=== PATIENT | male | born 1960 | race African-American/Black ===

== ENCOUNTER 2018-03-18 08:29 | Observation (INO) ==
[2018-03-18] MEDS ORDERED: HYDROmorphone 2 MG/1 ML VIAL IV STA (09:59)
[2018-03-18] MEDS ORDERED: SODIUM CHLORIDE 0.9% 500 ML IV STA (09:59)
[2018-03-18] MEDS ORDERED: ONDANSETRON 4 MG/2 ML VIAL IV STA (09:59)
[2018-03-18 10:32] LABS: Basophils % 0.4 % (0.0-0.8); Eosinophils % 0.5 % (0.00-10.9); Hematocrit 40.5 VOL% (42.0-52.0); Immature Granulocytes % 0.9 %; Immature Granulocytes Absolute 0.07 #; Lymphocytes # 2.4 10*3/uL (1.4-4.0); Lymphocytes % 30.3 % (21.2-54.2); Mean Corpuscular HGB Conc 32.1 GM/DL (32-36); Mean Corpuscular Hemoglobin 26 PG (27-34); Mean Corpuscular Volume 81.2 FL (87-102); Mean Platelet Volume 9.6 FL (9.6-12.0); Monocytes # 0.5 10*3/uL (0.11-0.8); Monocytes % 6.3 % (1.7-12.7); Neutrophils # 4.8 10*3/uL (1.4-7.4); Neutrophils % 61.6 % (38.7-73.9); Platelet Count 227 T/CUMM (130-400); Red Blood Count 4.99 MC/CUMM (3.8-5.5); Red Cell Distribution Width 15.1 % (9.3-17.3); White Blood Count 7.8 T/CUMM (4-12)
[2018-03-18 10:53] LABS: Lactic Acid 1.3 MMOL/L (0.4-2.0)
[2018-03-18 10:54] LABS: Alanine Aminotransferase 23 U/L (16-61); Albumin 3.7 G/DL (3.4-5.0); Alkaline Phosphatase 66 U/L (45-117); Amylase 84 U/L (25-115); Aspartate Amino Transferase 14 U/L (0-37); Blood Urea Nitrogen 9 MG/DL (7-18); Glucose 112 MG/DL (74-106); Osmolality,Calculated 278.4 MOS/KG (273-304); Potassium 4.3 MMOL/L (3.5-5.1); Sodium 140 MMOL/L (136-145); Total Protein 6.9 G/DL (6.4-8.3)
[2018-03-18 10:55] LABS: Troponin I Only < 0.015 NG/ML (0.00-0.045)
[2018-03-18] MEDS ORDERED: ONDANSETRON 4 MG/2 ML VIAL IV PRN (13:27)
[2018-03-18] MEDS ORDERED: ACETAMINOPHEN 325 MG TABLET PO PRN (13:27)
[2018-03-18] MEDS: LACTATED RINGERS 1,000 ML IV SCH ×2 (21:55→21:56)
[2018-03-19 05:24] LABS: Amorphous Crystals,Urine Moderate /HPF (Few); Apearance,Urine Slightly Hazy (Clear); Bacteria,Urine Occasional /HPF (Few); Bilirubin,Urine Negative (Negative); Blood, Urine Negative (Negative); Glucose,Urine (UA) Negative (Negative); Ketones,Urine Negative (Negative); Mucus,Urine Occasional /LPF (Occasional); Nitrite,Urine Negative (Negative); Protein,Urine Negative; RBC,Urine 2 /HPF (0-4); Squamous Epithelial Cell,Urine Occasional /HPF (0-10); Urine Color Yellow (Yellow); Urine Specific Gravity 1.014 (1.001-1.035); Urine Urobilinogen < 2.0 EU/DL (0.2-1.0); WBC,Urine 4 /HPF (0-6)
[2018-03-19] MEDS: LACTATED RINGERS 1,000 ML IV SCH ×2 (06:31→19:53)
[2018-03-19] MEDS ORDERED: cefOXitin 2,000 MG in SYRINGE 1 EACH IV ONE (09:00)
[2018-03-19] MEDS ORDERED: LIDOCAINE 1%/EPI INJ 20 ML VIAL ONE (11:45)
[2018-03-19] MEDS ORDERED: BUPIVACAINE MPF 0.25% 30 ML VIAL ONE (11:46)
[2018-03-19] MEDS ORDERED: HYDROmorphone 2 MG/1 ML VIAL IV PRN (13:26)
[2018-03-19] MEDS ORDERED: ONDANSETRON 4 MG/2 ML VIAL IV PRN (13:26)
[2018-03-19] MEDS ORDERED: MEPERIDINE 25 MG/1 ML VIAL IV PRN (13:26)
[2018-03-19] MEDS ORDERED: SEVOFLURANE 1 UNIT/15 MINUTE INH ONE (14:22)
[2018-03-19] MEDS ORDERED: ROCURONIUM 100 MG/10 ML VIAL IV ONE (14:22)
[2018-03-19] MEDS ORDERED: LACTATED RINGERS 1,000 ML IV ONE (14:22)
[2018-03-19] MEDS ORDERED: ONDANSETRON 4 MG/2 ML VIAL ONE (14:22)
[2018-03-19] MEDS ORDERED: NEOSTIGMINE 10 MG/10 ML VIAL ONE (14:22)
[2018-03-19] MEDS ORDERED: GLYCOPYRROLATE 0.4 MG/2 ML VIAL ONE (14:22)
[2018-03-19] MEDS ORDERED: DEXAMETHASONE 10 MG/1 ML VIAL ONE (14:22)
[2018-03-19] MEDS ORDERED: fentaNYL 100 MCG/2 ML VIAL ONE (14:22)
[2018-03-19] MEDS ORDERED: PROPOFOL 200 MG/20 ML VIAL IV ONE (14:22)
[2018-03-19] MEDS ORDERED: ACETAMINOPHEN 1,000 MG/100 ML VIAL IV ONE (14:22)
[2018-03-19] MEDS: MORPHINE 4 MG/1 ML VIAL IV PRN ×2 (14:30→19:47)
[2018-03-19] MEDS: PANTOPRAZOLE 40 MG TABLET PO SCH (17:31)
[2018-03-20] MEDS: LACTATED RINGERS 1,000 ML IV SCH ×2 (00:21→04:00)
[2018-03-20] MEDS: MORPHINE 4 MG/1 ML VIAL IV PRN (08:49)
[2018-03-20] MEDS: PANTOPRAZOLE 40 MG TABLET PO SCH (08:49)
[2018-03-20 11:35] VITALS: BP 152/71
[2018-03-20] MEDS ORDERED: KETOROLAC 10 MG TABLET PO PRN (12:23)
== END 2018-03-20 14:50 | disposition home or self-care (01) ==
LOC: N.EDINP 08:29 → N.ED 08:29 → N.3E 12:54
PROVIDERS: ADMIT Surgery; ATTEND Surgery

== ENCOUNTER 2022-01-08 14:03 | Observation (INO) ==
[2022-01-08] MEDS ORDERED: PIPERACILLIN/TAZOBACTAM 3,375 MG in SODIUM CHLORIDE 0.9% 100 ML IV STA (19:40)
[2022-01-08] MEDS ORDERED: HYDROmorphone 2 MG/1 ML VIAL IV STA (19:40)
[2022-01-08] MEDS ORDERED: ONDANSETRON 4 MG/2 ML VIAL IV STA (19:40)
[2022-01-08 20:14] LABS: Basophils # 0.1 10*3/uL (0.0-0.2); Basophils % 0.5 % (0.0-0.8); Eosinophils # 0.2 10*3/uL (0.0-0.87); Eosinophils % 2.4 % (0.00-10.9); Hematocrit 48.2 VOL% (42.0-52.0); Hemoglobin 15.2 GM/DL (14.0-18.0); Immature Granulocytes % 1.4 %; Immature Granulocytes Absolute 0.13 #; Lymphocytes # 3.1 10*3/uL (1.4-4.0); Lymphocytes % 33.5 % (21.2-54.2); Mean Corpuscular HGB Conc 31.5 GM/DL (32-36); Monocytes % 9.4 % (1.7-12.7); Neutrophils % 52.8 % (38.7-73.9); Platelet Count 285 T/CUMM (130-400); Red Blood Count 5.81 MC/CUMM (3.8-5.5); Red Cell Distribution Width 14.9 % (9.3-17.3); White Blood Count 9.3 T/CUMM (4-12)
[2022-01-08 20:29] LABS: Albumin 3.2 G/DL (3.4-5.0); Bilirubin,Total 0.4 MG/DL (0.20-1.00); Calcium 8.8 MG/DL (8.5-10.1); Osmolality,Calculated 273.8 MOS/KG (273-304); Potassium 4.2 MMOL/L (3.5-5.1); Total Protein 6.7 G/DL (6.4-8.2)
[2022-01-08] MEDS ORDERED: ONDANSETRON 4 MG/2 ML VIAL IV PRN (20:33)
[2022-01-08] MEDS ORDERED: ACETAMINOPHEN 325 MG TABLET PO PRN (20:33)
[2022-01-08] MEDS ORDERED: PROMETHAZINE 25 MG/1 ML VIAL IM STA (20:38)
[2022-01-08] MEDS: SODIUM CHLORIDE 0.9% 1,000 ML IV SCH (20:57)
[2022-01-09] MEDS: PIPERACILLIN/TAZOBACTAM 3,375 MG in SODIUM CHLORIDE 0.9% 100 ML IV SCH ×3 (04:50→20:15)
[2022-01-09 05:45] LABS: Basophils % 0.5 % (0.0-0.8); Eosinophils # 0.2 10*3/uL (0.0-0.87); Eosinophils % 2.5 % (0.00-10.9); Hemoglobin 14.1 GM/DL (14.0-18.0); Immature Granulocytes % 1.2 %; Lymphocytes # 2.5 10*3/uL (1.4-4.0); Lymphocytes % 30.6 % (21.2-54.2); Mean Corpuscular HGB Conc 31.3 GM/DL (32-36); Mean Corpuscular Volume 83.3 FL (87-102); Monocytes % 12.6 % (1.7-12.7); Neutrophils % 52.6 % (38.7-73.9); Platelet Count 262 T/CUMM (130-400); Red Cell Distribution Width 14.6 % (9.3-17.3); White Blood Count 8.3 T/CUMM (4-12)
[2022-01-09 05:55] LABS: Alanine Aminotransferase 20 U/L (16-61); Albumin 2.7 G/DL (3.4-5.0); Alkaline Phosphatase 54 U/L (45-117); Aspartate Amino Transferase 10 U/L (0-37); Bilirubin,Total < 0.39 MG/DL (0.20-1.00); Blood Urea Nitrogen 14 MG/DL (7-18); Calcium 8.5 MG/DL (8.5-10.1); Carbon Dioxide 29 MMOL/L (21-32); Estimated Glom Filtration Rate 75 ML/MIN; Glucose 111 MG/DL (74-106); Osmolality,Calculated 280.4 MOS/KG (273-304); Sodium 140 MMOL/L (136-145); Total Protein 5.7 G/DL (6.4-8.2)
[2022-01-09] MEDS: SODIUM CHLORIDE 0.9% 1,000 ML IV SCH (07:20)
[2022-01-09] MEDS ORDERED: INFLUENZA VIRUS VACCINE 0.5 ML SYRINGE IM ONE (09:00)
[2022-01-09] MEDS: ASPIRIN EC 81 MG TABLET PO SCH (11:25)
[2022-01-09] MEDS: PANTOPRAZOLE 40 MG TABLET PO SCH (11:25)
[2022-01-09] MEDS: HYDROmorphone 2 MG/1 ML VIAL IV PRN ×2 (11:26→20:14)
[2022-01-09] MEDS ORDERED: LIDOCAINE 1%/EPI INJ 20 ML VIAL ONE (12:31)
[2022-01-09] MEDS ORDERED: propofoL 200 MG/20 ML VIAL IV ONE (12:32)
[2022-01-09] MEDS ORDERED: LIDOCAINE 2% 5 ML VIAL ONE (12:32)
[2022-01-09] MEDS ORDERED: MIDAZOLAM 2 MG/2 ML VIAL ONE (12:32)
[2022-01-09] MEDS ORDERED: fentaNYL 100 MCG/2 ML VIAL ONE ×2 (12:32→13:51)
[2022-01-09] MEDS ORDERED: ONDANSETRON 4 MG/2 ML VIAL ONE (14:03)
[2022-01-09] MEDS ORDERED: DEXAMETHASONE 4 MG/1 ML VIAL ONE (14:03)
[2022-01-09] MEDS ORDERED: SEVOFLURANE 1 UNIT/15 MINUTE INH ONE (14:03)
[2022-01-09] MEDS ORDERED: HYDROmorphone 2 MG/1 ML VIAL IV PRN (14:30)
[2022-01-09] MEDS ORDERED: ONDANSETRON 4 MG/2 ML VIAL IV PRN (14:30)
[2022-01-09] MEDS: DOCUSATE SODIUM 100 MG CAPSULE PO SCH (20:15)
[2022-01-10] MEDS: HYDROmorphone 2 MG/1 ML VIAL IV PRN ×2 (03:22→09:34)
[2022-01-10] MEDS: SODIUM CHLORIDE 0.9% 1,000 ML IV SCH ×3 (05:58→13:45)
[2022-01-10] MEDS: PIPERACILLIN/TAZOBACTAM 3,375 MG in SODIUM CHLORIDE 0.9% 100 ML IV SCH ×2 (05:58→13:45)
[2022-01-10] MEDS ORDERED: ENOXAPARIN 40 MG/0.4 ML SYRINGE SUBCUT SCH (06:00)
[2022-01-10] MEDS: ASPIRIN EC 81 MG TABLET PO SCH (09:23)
[2022-01-10] MEDS: DOCUSATE SODIUM 100 MG CAPSULE PO SCH (09:23)
[2022-01-10] MEDS: PANTOPRAZOLE 40 MG TABLET PO SCH (09:23)
[2022-01-10 11:57] VITALS: BP 131/75
== END 2022-01-10 13:47 | disposition home or self-care (01) ==
LOC: N.ED 14:03 → N.EDINP 14:03 → N.5E 21:30
PROVIDERS: ADMIT Surgery; ATTEND Surgery